=== PATIENT | male | born 1935 | race Two or more races ===

== ENCOUNTER 2017-02-19 18:10 | Emergency (ER) | payer OTHER ==
[~2017-02-19] VITALS: Ht 177.8 cm; Wt 77.1 kg
[2017-02-19] MEDS ORDERED: ONDANSETRON PF 4 MG/2 ML VIAL. IV ONE (19:30)
[2017-02-19] MEDS ORDERED: fentaNYL PF VIAL 100 MCG/2 ML VIAL IV ONE (19:30)
--- NOTE | 2017-02-19 19:43 | PHYS DOC ---
Past Medical History Past Medical History: Diabetes-Type I, Hypertension, Kidney Stone, Other Additional Past Medical Histor: Chron's, cardiac stent Past Surgical History: Appendectomy, Cholecystectomy, Other Additional Past Surgical Histo: bowel resection d/t Chron's, kidney stone removal Alcohol Use: None Drug Use: None Adult General Chief Complaint Chief Complaint: ABDOMINAL PAIN HPI HPI Patient is a 81 year old male with history of kidney stones, Crohn's disease, hypertension dyslipidemia who presents with diffuse abdominal pain starting this morning. Pain is described as moderate to severe and is constant, radiates to back and is similar to previous Crohn's episodes. Patient has not had a bowel movement since pain began. Denies rectal pain or diarrhea. No nausea or vomiting. No chest pain shortness of breath. No fevers chills. Previous partial colectomy, appendectomy and cholecystectomy. No other acute symptoms or complaints. Patient's accompanied at bedside by his son who assists with translation. Review of Systems Review of Systems Review symptoms as per history of present illness. All other review symptoms are negative. Current Medications Current Medications Current Medications Medications (Trade) Dose Ordered Sig/Jacques Start Time Stop Time Status Last Admin Dose Admin Fentanyl Citrate (Fentanyl 2ml Vial) 50 mcg 1X ONCE 02/19/17 19:30 02/19/17 19:31 DC 02/19/17 19:55 50 MCG Info (Do NOT chart on this entry -- for MONITORING) 1 each PRN DAILY PRN 02/19/17 21:00 02/19/17 23:58 DC Iohexol (Omnipaque 300 Mg/ml) 75 ml 1X ONCE 02/19/17 21:30 02/19/17 21:31 DC 02/19/17 21:32 75 ML Ondansetron HCl (Zofran) 4 mg 1X ONCE 02/19/17 19:30 02/19/17 19:31 DC 02/19/17 19:55 4 MG Allergies Allergies Allergies Coded Allergies Type Severity Reaction Last Updated Verified No Known Drug Allergies 02/19/17 No Physical Exam Physical Exam Constitutional: Well developed, well nourished, no acute distress, non-toxic appearance. [] HENT: Normocephalic, atraumatic, bilateral external ears normal, oropharynx moist, no oral exudates, nose normal. [] Eyes: PERRLA, EOMI, conjunctiva normal, no discharge. [] Neck: Normal range of motion, no tenderness, supple, no stridor. [] Cardiovascular:Heart rate regular rhythm, no murmur [] Lungs & Thorax: Bilateral breath sounds clear to auscultation [] Abdomen: Bowel sounds normal, soft, obesity compromising exam, diffuse abdominal pain, no rebound or rigidity or guarding appreciated. [] Skin: Warm, dry, no erythema, no rash. [] Back: No tenderness. [] Extremities: No tenderness, no edema. [] Neurologic: Alert and oriented, normal motor function, normal sensory function, no focal deficits noted. [] Psychologic: Affect normal, judgement normal, mood normal. [] Current Patient Data Vital Signs Vital Signs Date Time Temp Pulse Resp B/P (MAP) Pulse Ox O2 Delivery O2 Flow Rate FiO2 02/19/17 20:44 58 21 187/81 (116) 96 02/19/17 20:35 Room Air 02/19/17 18:55 97.9 97.9 Lab Values Laboratory Tests Test 02/19/17 18:50 02/19/17 19:39 Urine Collection Type Unknown Urine Color Yellow Urine Clarity Clear Urine pH 6.5 Urine Specific [place] 1.020 Urine Protein 100 mg/dL (NEG-TRACE) Urine Glucose (UA) Negative mg/dL (NEG) Urine Ketones (Stick) Negative mg/dL (NEG) Urine Blood Negative (NEG) Urine Nitrite Negative (NEG) Urine Bilirubin Negative (NEG) Urine Urobilinogen Dipstick 0.2 mg/dL (0.2 mg/dL) Urine Leukocyte Esterase Negative (NEG) Urine RBC 0 /HPF (0-2) Urine WBC 1-4 /HPF (0-4) Urine Squamous Epithelial Cells Few /LPF Urine Bacteria 0 /HPF (0-FEW) Urine Hyaline Casts Few /HPF White Blood Count 8.1 x10^3/uL (4.0-11.0) Red Blood Count 4.59 x10^6/uL (4.30-5.70) Hemoglobin 11.4 g/dL (13.0-17.5) L Hematocrit 36.0 % (39.0-53.0) L Mean Corpuscular Volume 78 fL (79-100) L Mean Corpuscular Hemoglobin 25 pg (25-35) Mean Corpuscular Hemoglobin Concent 32 g/dL (31-37) Red Cell Distribution Width 15.3 % (11.5-14.5) H Platelet Count 214 x10^3/uL (140-400) Neutrophils (%) (Auto) 44 % (31-73) Lymphocytes (%) (Auto) 44 % (24-48) Monocytes (%) (Auto) 8 % (0-9) Eosinophils (%) (Auto) 3 % (0-3) Basophils (%) (Auto) 1 % (0-3) Neutrophils # (Auto) 3.6 x10^3uL (1.8-7.7) Lymphocytes # (Auto) 3.6 x10^3/uL (1.0-4.8) Monocytes # (Auto) 0.7 x10^3/uL (0.0-1.1) Eosinophils # (Auto) 0.2 x10^3/uL (0.0-0.7) Basophils # (Auto) 0.1 x10^3/uL (0.0-0.2) Sodium Level 138 mmol/L (136-145) Potassium Level 4.7 mmol/L (3.5-5.1) Chloride Level 102 mmol/L (98-107) Carbon Dioxide Level 30 mmol/L (21-32) Anion Gap 6 (6-14) Blood Urea Nitrogen 22 mg/dL (8-26) Creatinine 1.5 mg/dL (0.7-1.3) H Estimated GFR (Cockcroft-Gault) 44.7 BUN/Creatinine Ratio 15 (6-20) Glucose Level 219 mg/dL (70-99) H Calcium Level 8.7 mg/dL (8.5-10.1) Total Bilirubin 0.7 mg/dL (0.2-1.0) Aspartate Amino Transferase (AST) 18 U/L (15-37) Alanine Aminotransferase (ALT) 20 U/L (16-63) Alkaline Phosphatase 84 U/L (46-116) C-Reactive Protein, Quantitative 0.5 mg/L (0-3.3) Total Protein 7.4 g/dL (6.4-8.2) Albumin 3.2 g/dL (3.4-5.0) L Albumin/Globulin Ratio 0.8 (1.0-1.7) L Lipase 148 U/L (73-393) Laboratory Tests 02/19/17 19:39 Laboratory Tests 02/19/17 19:39 EKG EKG [] Radiology/Procedures Radiology/Procedures [CT abdomen pelvis: No acute process per radiology reports] Course & Med Decision Making Course & Med Decision Making Pertinent Labs and Imaging studies reviewed. (See chart for details) [Abdomen soft, nonsurgical and serial exam. Lab and CT reviewed and are reassuring. We'll treat for constipation as presumptive cause of abdominal pain with recommendations this is a follow-up. Return precautions reviewed.] Dragon Disclaimer Dragon Disclaimer This electronic medical record was generated, in whole or in part, using a voice recognition dictation system. Departure Departure Impression: Primary Impression: Abdominal pain Disposition: HOME, SELF-CARE Condition: GOOD Patient Instructions: Abdominal Pain (Nonspecific) STEPHON ARAUZ DO Feb 19, 2017 19:42
[2017-02-19 19:50] LABS: BASO # 0.1 x10^3/uL (0.0-0.2); BASO % 1 % (0-3); EOS % 3 % (0-3); HEMOGLOBIN 11.4 g/dL (13.0-17.5); LYMPH # 3.6 x10^3/uL (1.0-4.8); LYMPH % 44 % (24-48); MEAN CORPUSCULAR HEMOGLOBIN 25 pg (25-35); MEAN CORPUSCULAR HGB CONC 32 g/dL (31-37); MEAN CORPUSCULAR VOLUME 78 fL (79-100); MONO % 8 % (0-9); NEUT % 44 % (31-73); PLATELET COUNT 214 x10^3/uL (140-400); RED BLOOD COUNT 4.59 x10^6/uL (4.30-5.70); RED CELL DISTRIBUTION WIDTH 15.3 % (11.5-14.5); WHITE BLOOD COUNT 8.1 x10^3/uL (4.0-11.0)
[2017-02-19 20:03] LABS: BILIRUBIN,URINE NEGATIVE (NEG); GLUCOSE,URINE NEGATIVE (NEG); NITRITE,URINE NEGATIVE (NEG); PH,URINE 6.5; PROTEIN,URINE 100 mg/dL (NEG-TRACE); UROBILINOGEN,URINE 0.2 mg/dL (0.2 mg/dL)
[2017-02-19 20:04] LABS: BACTERIA,URINE 0 /HPF (0-FEW); RBC,URINE 0 /HPF (0-2); SQUAMOUS EPITHELIAL CELL,UR FEW /LPF
[2017-02-19 20:07] LABS: CALCIUM 8.7 mg/dL (8.5-10.1); CREATININE 1.5 mg/dL (0.7-1.3); GFR 44.7; POTASSIUM 4.7 mmol/L (3.5-5.1)
[2017-02-19 20:12] LABS: ALBUMIN 3.2 g/dL (3.4-5.0); ALBUMIN/GLOBULIN RATIO 0.8 (1.0-1.7); TOTAL BILIRUBIN 0.7 mg/dL (0.2-1.0); TOTAL PROTEIN 7.4 g/dL (6.4-8.2)
[2017-02-19 20:44] VITALS: BP 187/81
[2017-02-19] MEDS ORDERED: CONTRAST GIVEN MC PRN (21:00)
[2017-02-19] MEDS ORDERED: IOHEXOL 300 MG/ML 75 ML VIAL IV ONE (21:30)
--- NOTE | 2017-02-19 22:03 | RAD ---
EXAM: Abdomen and pelvis CT with intravenous contrast. HISTORY: Pain. TECHNIQUE: Computed tomographic images of the abdomen and pelvis were obtained following the administration of 60 cc Omnipaque 300 intravenous contrast. Multiplanar reformatting was performed. *One or more of the following individualized dose reduction techniques were utilized for this examination: 1. Automated exposure control. 2. Adjustment of the mA and/or kV according to patient size. 3. Use of iterative reconstruction technique. COMPARISON: None. FINDINGS: Evaluation of the lower thorax demonstrates bilateral posterior dependent and basilar atelectasis. There is an 8 mm nodule within the medial left lung base. The heart is upper normal in size. There is coronary artery atherosclerosis. There is biliary ductal dilatation likely due to reservoir effect status post cholecystectomy. There is a punctate calcification in the pancreatic head which may be vascular or due to the sequela of chronic pancreatitis. The spleen and adrenal glands are unremarkable. There is bilateral renal cortical scarring and atrophy. There are 1.2 cm and 1.0 cm cystic lesions within the superior bilateral kidneys. There is no obstructive uropathy. There is deformation of the bladder base due to a mildly enlarged prostate. There is no evidence of bowel obstruction. There is moderate distal colonic stool. There is no pathologically enlarged lymph node. There are degenerative changes involving the spine. There is a interspinous decompression device at L4-L5. IMPRESSION: 1. Moderate distal colonic stool. There is no evidence of colitis or obstruction. 2. Biliary ductal dilatation, likely due to reservoir effect status post cholecystectomy. 3. Renal cortical scarring and atrophy. There are small cystic-appearing lesions within the upper poles of both kidneys. Renal sonography can be performed to exclude a complex cyst or solid lesion. 4. 8 mm pulmonary nodular opacity at the left lung base. This is likely due to subsegmental atelectasis. However, follow-up can be performed according to Fleischner Society criteria if clinically indicated. Fleischner Society recommendations (Radiology 2005; 237; 395-400): In a low risk patient: <4mm - No follow up required. >4-6mm- 12 month follow up, if unchanged, no further follow up. >6-8mm- 6-12 month follow up, then at 18-24 months if no change. >8mm- 3, 9, 24 month follow up or consideration of PET/CT. In a high risk patient: <4mm - 12 month follow up, if unchanged then no further follow up. >4-6mm- 6-12 month follow up, then at 18-24 months if no change. >6-8mm- 3-6 month follow up, then at 9-12 months and 24 months if no change >8mm- Same as for low risk patient. Electronically signed by: Aretha Quezada MD (02/19/2017 9:59 PM) [facility]
--- NOTE | 2017-02-20 11:24 | EKG ---
[facility] [address] [place] [address] Test Date: 2017-02-19 Test Time: 18:54:15 Pat Name: JAX FLORES Department: Room: Gender: M Flight Hostess: : 1935 Requested By: STEPHON ARAUZ Order Number: [id number] Reading MD: Bernardo Tejada Measurements Intervals [place] Rate: 61 P: 34 ME: 356 QRS: -23 QRSD: 86 T: 21 QT: 434 QTc: 443 Interpretive Statements SINUS RHYTHM PROLONGED ME INTERVAL Electronically Signed On 02-23-2017 9:54:24 CDT by Bernardo Tejada
== END 2017-02-19 23:39 | disposition home or self-care (01) ==
LOC: ER 19:58
DX: R10.84 Generalized abdominal pain (principal); E10.9 Type 1 diabetes mellitus without complications; I10 Essential (primary) hypertension; K50.90 Crohn's disease, unspecified, without complications; E78.5 Hyperlipidemia, unspecified; Z87.442 Personal history of urinary calculi; Z90.49 Acquired absence of other specified parts of digestive tract; Z95.5 Presence of coronary angioplasty implant and graft
CPT/HCPCS: 36415; 74177; 80053; 81001; 83690; 85025; 86140; 93005; 96374; 96375; 99285; J2405; J3010; Q9967

== ENCOUNTER → 2017-03-09 | Day surgery (SDC) | payer OTHER ==
[~2017-03-09] MED LIST: ASPI-482 PO; BALS750C PO; CARV6.252 PO; DICY10CA3 PO; DIPH1TAB PO; ESOM20CA PO; GLYCOPYRROLATE 1 MG/5 ML VIAL. ONE; HUM100VI5 SQ; IV RINGERS,LACTATED 1000ML 1,000 ML IV ONE; LIDOCAINE 2% PF Vial for OR 5 ML VIAL. ONE; LIPITOR80 MG PO; POTA20TA4 PO; PROPOFOL 20 ML IV ONE; TRAM50TA PO; ePHEDrine PF IN SALINE 50 MG/5 ML DISP.SYRIN IV ONE
[2017-03-09 17:43] VITALS: BP 146/70
--- NOTE | 2017-03-11 11:51 | PATHOLOGY ---
PATHOLOGY REPORT * * * * * * * * FINAL DIAGNOSIS: Colonic mucosa, random colon biopsy: - No significant pathologic abnormalities. COMMENT: Sections of the random colon biopsy reveal multiple segments of colonic mucosa containing several mucosal-associated lymphoid aggregates. There is no evidence of a chronic destructive colitis, lymphocytic colitis, or collagenous colitis. (JPM:mgr; 03/11/2017) REPORT ELECTRONICALLY SIGNED BY: Darinel Dupont M.D. DATE/TIME: 03/11/2017 11:50 * * * * * * * * GROSS PATHOLOGY: Received in formalin labeled "Jax Flores, random colon biopsies, r;/o Crohn's," are multiple segments of kumar soft tissue measuring from 0.1 up to 0.3 cm in maximum dimension. The specimen is submitted entirely in cassette A1. (JPM; 03/10/17) INITIAL CPT CODE(S): A; 73924 Professional services performed [place] [facility] [place] [address] Technical services performed by [facility] at [address] [place] [address]. SPECIMEN(S) RECEIVED: A.Random colon biopsy CLINICAL HISTORY: Screening PATIENT: JAX FLORES /AGE: 2 1935 (Age: 81) PATIENT #: [id number] ALT CASE #: SPECIMEN COLLECTION DATE: 03/09/2017 SPECIMEN RECEIVED DATE: 03/10/2017 [facility] - [address] [place] [address] - PHONE: [phone] * * * END OF REPORT * * *
== END | disposition home or self-care (01) ==
LOC: ENDOS 15:25
PROVIDERS: ATTEND Internal Medicine Gastroenterology
DX: K64.0 First degree hemorrhoids (principal); K50.10 Crohn's disease of large intestine without complications; K63.89 Other specified diseases of intestine; E78.00 Pure hypercholesterolemia, unspecified; I10 Essential (primary) hypertension; E11.9 Type 2 diabetes mellitus without complications; Z90.49 Acquired absence of other specified parts of digestive tract; Z86.39 Personal history of other endocrine, nutritional and metabolic disease
CPT/HCPCS: 45380; 88305; J2704; J3490; J2001

== ENCOUNTER → 2017-03-30 | Outpatient (CLI) | payer OTHER ==
[2017-03-09 17:43] VITALS: BP 146/70
[~2017-03-30] MED LIST changes: -GLYCOPYRROLATE 1 MG/5 ML VIAL. ONE; -IV RINGERS,LACTATED 1000ML 1,000 ML IV ONE; -LIDOCAINE 2% PF Vial for OR 5 ML VIAL. ONE; -PROPOFOL 20 ML IV ONE; -ePHEDrine PF IN SALINE 50 MG/5 ML DISP.SYRIN IV ONE
[2017-03-30] MEDS: BARIUM SULFATE 60% 355 ML SUSP PO ONE (09:24)
--- NOTE | 2017-03-30 11:11 | RAD ---
Indication abdominal pain for a month. In anticipation of a small bowel examination a preliminary film of the abdomen was obtained. The preliminary film appears unremarkable. Contrast was administered orally and followed through to the large bowel. 5 fluoroscopic spot images were obtained. Fluoroscopy time associated with the imaging was 1.7 minutes. The jejunal loops appear normal. The ileal loops appear normal. No strictured segment is seen. Changes of a right colectomy are noted. IMPRESSION: No acute or significant finding seen in the small bowel
== END | disposition home or self-care (01) ==
LOC: RAD 08:57
PROVIDERS: ATTEND Internal Medicine Gastroenterology
DX: K50.90 Crohn's disease, unspecified, without complications (principal)
CPT/HCPCS: 74250

== ENCOUNTER → 2017-08-13 | Outpatient (CLI) | payer OTHER | END | disposition home or self-care (01) | LOC: US 15:37 | DX: N20.0 Calculus of kidney (principal); E04.1 Nontoxic single thyroid nodule; N28.89 Other specified disorders of kidney and ureter | CPT/HCPCS: 76770 ==

== ENCOUNTER 2017-08-15 12:45 | Emergency (ER) | payer OTHER ==
[2017-08-15 13:57] LABS: ADD MAN DIFF? NO
[2017-08-15 14:06] LABS: BASO # 0.1 x10^3/uL (0.0-0.2); BASO % 1 % (0-3); EOS # 0.2 x10^3/uL (0.0-0.7); EOS % 2 % (0-3); HEMATOCRIT 37.9 % (39.0-53.0); HEMOGLOBIN 12.1 g/dL (13.0-17.5); LYMPH # 2.9 x10^3/uL (1.0-4.8); LYMPH % 34 % (24-48); MEAN CORPUSCULAR HEMOGLOBIN 26 pg (25-35); MEAN CORPUSCULAR HGB CONC 32 g/dL (31-37); MEAN CORPUSCULAR VOLUME 80 fL (79-100); MONO # 0.6 x10^3/uL (0.0-1.1); MONO % 7 % (0-9); NEUT # 4.8 x10^3uL (1.8-7.7); NEUT % 56 % (31-73); PLATELET COUNT 169 x10^3/uL (140-400); RED BLOOD COUNT 4.73 x10^6/uL (4.30-5.70); RED CELL DISTRIBUTION WIDTH 15.1 % (11.5-14.5); WHITE BLOOD COUNT 8.6 x10^3/uL (4.0-11.0)
[2017-08-15 14:10] LABS: ANION GAP 12 (6-14); BLOOD UREA NITROGEN 34 mg/dL (8-26); BUN/CREATININE RATIO 20 (6-20); CALCIUM 8.9 mg/dL (8.5-10.1); CARBON DIOXIDE 22 mmol/L (21-32); CHLORIDE 107 mmol/L (98-107); CREATININE 1.7 mg/dL (0.7-1.3); GFR 38.6; GLUCOSE 162 mg/dL (70-99); POTASSIUM 4.3 mmol/L (3.5-5.1); SODIUM 141 mmol/L (136-145)
[2017-08-15 14:16] LABS: ALBUMIN 2.9 g/dL (3.4-5.0); ALBUMIN/GLOBULIN RATIO 0.8 (1.0-1.7); ALK PHOS 79 U/L (46-116); ALT (SGPT) 16 U/L (16-63); AST (SGOT) 13 U/L (15-37); LIPASE 150 U/L (73-393); TOTAL BILIRUBIN 0.5 mg/dL (0.2-1.0); TOTAL PROTEIN 6.6 g/dL (6.4-8.2)
[2017-08-15 14:19] LABS: TROPONINI < 0.017 ng/mL (0.000-0.055)
[2017-08-15] MEDS: ONDANSETRON PF 4 MG/2 ML VIAL. IV (16:15)
[2017-08-15] MEDS: MORPHINE SULFATE 2 MG/ML DISP.SYRIN. IV (16:15)
[2017-08-15] MEDS: IV NORMAL SALINE 1000ML BAG 1,000 ML IV (16:30)
== END 2017-08-15 16:50 | disposition left against medical advice (07) ==
LOC: ER 12:45
DX: E86.0 Dehydration (principal); K50.90 Crohn's disease, unspecified, without complications; K21.9 Gastro-esophageal reflux disease without esophagitis; I10 Essential (primary) hypertension; E10.9 Type 1 diabetes mellitus without complications; E87.6 Hypokalemia; Z95.5 Presence of coronary angioplasty implant and graft; Z90.49 Acquired absence of other specified parts of digestive tract; Z87.442 Personal history of urinary calculi
CPT/HCPCS: 36415; 74176; 80053; 83690; 84484; 85025; 86850; 86900; 86901; 93005; 96360; 99285-25; J7030

== ENCOUNTER → 2018-06-22 | Outpatient (CLI) | payer OTHER ==
[2017-12-04 11:00] VITALS: BP 149/115
[~2018-06-22] MED LIST changes: +ATOR40TA59 PO; +BACI1TAB3 PO; +CARV12.511 PO; +CARV6.2511 PO; -CARV6.252 PO; +CEFD300C PO; +DEXT1CAP PO; +FERR325T14 PO; +GLYB5TAB3 PO; +MAGN400T3 PO; +METF500T9 PO; +ONDA4TAB10 SL; +PANT20TA2 PO; +SIME125C PO
[2018-06-22 13:41] LABS: BASO # 0.1 x10^3/uL (0.0-0.2); BASO % 1 % (0-3); EOS # 0.2 x10^3/uL (0.0-0.7); EOS % 2 % (0-3); HEMATOCRIT 38.3 % (39.0-53.0); HEMOGLOBIN 12.7 g/dL (13.0-17.5); LYMPH # 3.6 x10^3/uL (1.0-4.8); LYMPH % 38 % (24-48); MEAN CORPUSCULAR HEMOGLOBIN 28 pg (25-35); MEAN CORPUSCULAR HGB CONC 33 g/dL (31-37); MEAN CORPUSCULAR VOLUME 83 fL (79-100); MONO # 0.7 x10^3/uL (0.0-1.1); MONO % 8 % (0-9); NEUT # 4.8 x10^3uL (1.8-7.7); NEUT % 51 % (31-73); PLATELET COUNT 228 x10^3/uL (140-400); RED BLOOD COUNT 4.61 x10^6/uL (4.30-5.70); RED CELL DISTRIBUTION WIDTH 15.8 % (11.5-14.5); WHITE BLOOD COUNT 9.4 x10^3/uL (4.0-11.0)
[2018-06-22 13:51] LABS: BILIRUBIN,URINE SMALL (NEG); CLARITY,URINE CLEAR; COLOR,URINE AMBER; NITRITE,URINE NEGATIVE (NEG); PH,URINE 5.5; PROTEIN,URINE >=300 mg/dL (NEG-TRACE); UROBILINOGEN,URINE 0.2 mg/dL (0.2 mg/dL)
[2018-06-22 14:11] LABS: BACTERIA,URINE 0 /HPF (0-FEW); HYALINE CASTS, URINE FEW /HPF; RBC,URINE OCC /HPF (0-2); WBC,URINE OCC /HPF (0-4)
[2018-06-22 14:13] LABS: CALCIUM 8.7 mg/dL (8.5-10.1); CREATININE 1.7 mg/dL (0.7-1.3); GFR 38.6; PHOSPHORUS 3.2 mg/dL (2.6-4.7); POTASSIUM 4.5 mmol/L (3.5-5.1)
[2018-06-23 02:19] LABS: CREAT RD UR 186.2 mg/dL (Not Estab.); MICRO CREAT RATIO 640.5 mg/g creat (0.0-30.0); MICROALB RD UR 1192.7 ug/mL (Not Estab.)
== END | disposition home or self-care (01) ==
LOC: LAB 13:05
PROVIDERS: ATTEND Internal Medicine Nephrology
DX: N18.3 Chronic kidney disease, stage 3 (moderate) (principal); E11.22 Type 2 diabetes mellitus with diabetic chronic kidney disease; I12.9 Hypertensive chronic kidney disease with stage 1 through stage 4 chronic kidney disease, or unspecified chronic kidney disease
CPT/HCPCS: 36415; 80069; 81001; 82043; 82570; 85025; 87086

== ENCOUNTER → 2019-03-01 | Outpatient (CLI) | payer OTHER ==
[2017-12-04 11:00] VITALS: BP 149/115
[~2019-03-01] MED LIST changes: +METF500T11 PO; -METF500T9 PO
--- NOTE | 2019-03-01 13:32 | KCIC ---
EXAM: AP, oblique and lateral views left ankle AP, lateral views left tibia/fibula AP, oblique and lateral views of the left knee DATE: 03/01/2019 12:00 AM INDICATION: Fall, twisting injury, swelling, left leg pain COMPARISON: No Prior FINDINGS: Left knee: Mild cortical offset and trace periosteal reaction about the fibular neck is seen consistent with nondisplaced fracture. Atherosclerotic vascular calcifications are seen. No joint effusion. Decreased bone mineral density. Left tibia/fibula: Fibular head/neck fracture as above. No distal tibial/fibular fracture is identified. Mild diffuse soft tissue swelling about the left lower leg. Gastric calcifications are again seen. Decreased bone mineral density. Left ankle: No evidence of acute fracture or dislocation. Decreased bone mineral density. Ankle mortise is congruent. Talar dome is intact. Calcaneal enthesopathy IMPRESSION: 1. Nondisplaced left fibular neck fracture with mild periosteal reaction, likely subacute. 2. Within the constraints of osteopenia, no distal tibial or fibular fracture. No significant soft tissue swelling. 3. Calcaneal enthesopathy. Electronically signed by: Cole Vieyra MD (03/01/2019 1:30 PM) [facility]-[id number]
== END | disposition home or self-care (01) ==
LOC: KCIC 12:22
PROVIDERS: ATTEND Physician Assistant Surgical
DX: S82.492A Other fracture of shaft of left fibula, initial encounter for closed fracture (principal); M85.862 Other specified disorders of bone density and structure, left lower leg; M77.32 Calcaneal spur, left foot; I70.202 Unspecified atherosclerosis of native arteries of extremities, left leg; W19.XXXA Unspecified fall, initial encounter; Y93.89 Activity, other specified; Y92.89 Other specified places as the place of occurrence of the external cause; Y99.8 Other external cause status
CPT/HCPCS: 73562; 73590; 73610

== ENCOUNTER → 2020-01-11 | Outpatient (CLI) | payer OTHER ==
[2017-12-04 11:00] VITALS: BP 149/115
[~2020-01-11] MED LIST changes: -MAGN400T3 PO; +MAGN400T5 PO; +METF-658 PO; -METF500T11 PO
--- NOTE | 2020-01-11 09:57 | RAD ---
EXAM: Lumbar spine MRI without contrast. HISTORY: Lower back pain and lower extremity radiculopathy. TECHNIQUE: Multiplanar, multisequence magnetic resonance imaging of the lumbar spine was performed without contrast. COMPARISON: None. FINDINGS: There is no significant scoliosis. There is minimal retrolisthesis of L5 on S1. There is degenerative endplate remodeling and disc desiccation at all levels. There is diffusely heterogeneous marrow signal intensity with superimposed osseous hemangiomas. No suspicious osseous lesion is seen. There is no fracture. There is chronic mild anterior wedging of T12 and minimal anterior decreased vertebral body height at L1. The conus terminates at T12-L1. There is bilateral renal atrophy. There is a complex left renal cyst containing suspected layering calcification or blood products measuring 1.9 cm. There is metallic artifact due to and interspinous decompression device at L4-L5. At L1-L2, there is anterior predominant endplate osteophytosis. There is mild bilateral facet arthropathy. There is mild bilateral foraminal stenosis. At L2-L3, there is a small left foraminal disc protrusion superimposed on a disc bulge and endplate remodeling. There is mild bilateral facet arthropathy. There is no stenosis. At L3-L4, there is a disc bulge and anterior predominant endplate osteophytosis. There is mild bilateral facet arthropathy. There is minimal central canal stenosis. At L4-L5, there is a shallow broad-based left paracentral to lateral recess disc protrusion and annular tear superimposed on a disc bulge and endplate remodeling. There is mild bilateral facet arthropathy. There is mild bilateral foraminal stenosis. There is mild central canal stenosis. At L5-S1, there is a shallow posterior central disc protrusion and annular tear with minimal inferior extrusion superimposed on a disc bulge and endplate osteophytosis. There is moderate right and mild left foraminal stenosis. IMPRESSION: 1. Multilevel degenerative change involving the lumbar spine, described in detail above. This is associated with mild bilateral foraminal stenosis at L1-L2, minimal central canal stenosis at L3-L4, mild bilateral foraminal and central canal stenosis at L4-L5 and moderate right and mild left foraminal stenosis at L5-S1. 2. Interspinous decompression device at L4-L5. 3. Bilateral renal atrophy and 1.9 cm complex left renal cyst likely containing layering debris. There are few additional small simple and suspected hemorrhagic renal cysts which are better characterized on the abdomen MRI performed on the same date. Electronically signed by: Aretha Quezada MD (01/11/2020 9:54 AM) [id number]
--- NOTE | 2020-01-11 10:52 | RAD ---
EXAM: MRI ABDOMEN WITHOUT CONTRAST. HISTORY: Common duct dilatation, low back pain. TECHNIQUE: MRI of the abdomen was performed without intravenous contrast. Three-dimensional reconstructions of the biliary tree were also performed. COMPARISON: None. FINDINGS: Liver: Hepatic parenchymal signal loss on opposed phase images indicates mild diffuse hepatic steatosis. There are no suspicious hepatic lesions. Biliary tree: The gallbladder is surgically absent. The common duct is moderately dilated at 1.4 cm. There is moderate intrahepatic biliary dilatation. No cause for distal obstruction or choledocholithiasis is identified. The pancreatic parenchyma is diffusely moderately atrophic without focal lesions. The main pancreatic duct is not dilated. There are scattered mildly dilated pancreatic ductal side branches, several which include tiny cystic lesions measuring <5 mm. Other findings: The renal parenchyma is moderately atrophic bilaterally. There are multiple cysts bilaterally. Some are T2 hypointense and T1 hyperintense, most likely reflecting proteinaceous/hemorrhagic contents. The adrenal glands and spleen are unremarkable. IMPRESSION: 1. Moderate intra and extrahepatic biliary dilatation status post cholecystectomy, to the level of the ampulla. No cause for distal obstruction is appreciable. Correlate for cholestasis to assess significance. ERCP could exclude ampullary stenosis if there is persistent concern. 2. Scattered pancreatic ductal side branch dilatation may reflect chronic pancreatitis. Tiny cystic lesions may reflect a dilated side branch ducts or tiny intraductal papillary mucinous neoplasms. 3. Multiple bilateral renal lesions most likely reflect complicated cysts. Ultrasound follow-up is suggested to exclude solid lesions. 4. Mild diffuse hepatic steatosis. Electronically signed by: Glendy Walker MD (01/11/2020 10:49 AM) [id number]
== END | disposition home or self-care (01) ==
LOC: MRI 09:39
PROVIDERS: ATTEND Family Medicine
DX: M47.816 Spondylosis without myelopathy or radiculopathy, lumbar region (principal); M54.40 Lumbago with sciatica, unspecified side; M43.17 Spondylolisthesis, lumbosacral region; M25.78 Osteophyte, vertebrae; M48.07 Spinal stenosis, lumbosacral region; K83.8 Other specified diseases of biliary tract; N26.1 Atrophy of kidney (terminal); K76.0 Fatty (change of) liver, not elsewhere classified; Z90.49 Acquired absence of other specified parts of digestive tract; N28.89 Other specified disorders of kidney and ureter
CPT/HCPCS: 72148; 74181

== ENCOUNTER → 2020-01-30 | Outpatient (CLI) | payer OTHER ==
[2017-12-04 11:00] VITALS: BP 149/115
--- NOTE | 2020-01-30 14:16 | PDOC2 ---
INITIAL PAIN CONSULT DATE OF SERVICE: DOS: DATE: 01/30/20 TIME: 13:56 CHIEF COMPLAINT: Chief Complaint: Low back and bilateral lower extremity pain HISTORY OF PRESENT ILLNESS: This is an 84-year-old male presents history of pain low back bilateral lower extremities for about 6 years. Patient son is with him and serves as prevocational/rehabilitation counselor for [employer]. Patient reports the pain is constant in the low back the bilateral lower extremities worse with walking and standing better with sitting or laying down patient reports it wakes him from sleep least 4-5 times at night patient reports he does not affect his bowel bladder control does affect his body to walk he does have a cane with him he is using his right hand walk with today. Patient has had epidural injections in 2014 in [place] also physical therapy in 2018 at and counseling and is doing exercise currently and walks daily about half a mile but is becoming much more difficult for him to do this lately because of the pain in bilateral lower extremities. Patient reports the pain is in both legs across the low back described as constant aching radiating into the legs sharp and dull alternating in the back as well as cramping and burning at times in the low back itself. 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 Patient been taking Tylenol 3 as well as [id number] anti-inflammatories Advil and also Tylenol with only minimal decrease in pain. Patient reports that physical therapies been doing and the exercises been doing since with the physical therapy are helpful but only by about 20%. Patient ports no loss of motor function but significant fatigability with walking and standing. Patient did have an MRI scan lumbar spine showing multilevel disc degenerative disc disease with central canal stenosis L3-4 mild bilateral foraminal and central canal stenosis at L4-5 and moderate right and mild left foraminal stenosis at L5-S1. PAST MEDICAL HISTORY: PMH: Diabetes insulin-dependent, hearing loss, hypertension, Crohn's disease PREVIOUS SURGERIES: Past Surgical Hx: Cholecystectomy 1999, L4-5 interspinous decompression device placed CURRENT MEDICATIONS: Current Meds: Active Scripts Medications Dose Route/Sig Max Daily Dose Days Date Category Glyburide 5 Mg Tablet 1 Tab PO BID 12/04/17 Rx Zofran Odt (Ondansetron) 4 Mg Tab.rapdis 1 Tab SL Q8HRS 08/15/17 Rx Atorvastatin Calcium 40 Mg Tablet 40 Mg PO HS 08/15/17 Reported Cefdinir 300 Mg Capsule 1 Cap PO BID 08/15/17 Reported Nuedexta 20-10 Mg Capsule (Dextromethorphan Hbr/Quinidine) 1 Each Capsule 2 Each PO DAILY 08/15/17 Reported Nexium Capsule (Esomeprazole Magnesium) 20 Mg Capsule.dr 20 Mg PO DAILYAC 08/15/17 Reported Gas-X (Simethicone) 125 Mg Capsule 125 Mg PO 08/15/17 Reported Ferrous Sulfate 325 Mg Tablet 1 Tab PO DAILY 08/15/17 Reported Magnesium Oxide 400 Mg Tablet 250 Mg PO DAILY 08/15/17 Reported Probiotic (Bacillus Coagulans) 1 Each Tab.chew 1 Each PO DAILY 08/15/17 Reported Klor-Con M20 (Potassium Chloride) 20 Meq Tab.er.prt 1 Tab PO DAILY 03/09/17 Reported Carvedilol 6.25 Mg Tablet 1 Tab PO BID 03/09/17 Reported Aspir 81 (Aspirin) 81 Mg Tablet.dr 1 Tab PO DAILY 03/09/17 Reported Tramadol Hcl 50 Mg Tablet 50 Mg PO DAILY PRN 03/09/17 Reported Lomotil Tablet (Diphenoxylate Hcl/Atropine) 1 Each Tablet 1 Tab PO TID 03/09/17 Reported Balsalazide Disodium 750 Mg Capsule 750 Mg PO TID 03/09/17 Reported Novolin 70-30 100 Unit/Ml Vial (Hum Insulin Nph/Reg Insulin Hm) 100 Unit/1 Ml Vial 1 Unit SQ 03/09/17 Reported Dicyclomine Hcl 10 Mg Capsule 10 Mg PO QID 03/09/17 Reported ALLERGIES; Allergies: Coded Allergies: No Known Drug Allergies (Unverified , 03/09/17) FAMILY HISTORY: Family Hx: No significant family history reported SOCIAL HISTORY: Social Hx: Patient does not drink alcohol does not smoke so is the legal list recreational drugs is a lives locally with his son and is currently retired. REVIEW OF SYSTEMS: ROS: Patient review of system is positive for those items mentioned in history of present illness, all systems are reviewed otherwise negative is complete full well-documented on patient's chart. PHYSICAL EXAM: VS: Blood pressure is 128/62 pulse 74 respirations 18 temperature 97.8 F height is 5 feet 9 inches weight is 1 7 6 pounds PE: PHYSICAL EXAMINATION: GENERAL: The patient is awake, alert, oriented, appropriate, very pleasant demeanor HEENT: Shows normocephalic, atraumatic. Extraocular movements are intact and symmetrical. Oral cavity: Mucous membranes moist and pink. Dentition is intact. NECK: Shows anterior throat supple without palpable lymphadenopathy noted. Swallow reflex symmetrical. CHEST: Shows normal on inspection. Breath sounds are clear bilaterally, no rales rhonchi or wheezes auscultated. HEART: Shows S1, S2 clear. No murmurs auscultated. ABDOMEN: Soft, nontender, nondistended. No palpable organomegaly is noted. No rebound or guarding demonstrated. BACK: Shows spine grossly in the midline. Normal-appearing cervical lordotic curvature. There is slightly increased thoracic kyphosis, some minor flattening of the lumbar lordotic curvature. Lumbar paraspinous muscles show symmetrical on inspection, on palpation shows some moderate tenderness diffusely throughout the upper, middle and lower distribution of the paraspinous muscles bilaterally and also into the lower thoracic paraspinous musculature, firm and tender, but without specific trigger points, without radiation of pain. The patient has good rotational motion of the lumbar spine, both laterally as well as extension and flexion without significant difficulty. No tenderness over the spinous processes, sacrum or sacroiliac regions. EXTREMITIES: Lower extremities show deep tendon reflexes 1+ in the patellar and tendo calcaneus tendons. Motor exam is [] on a scale of 5 with right dorsiflexion, extension, quadriceps and hamstring flexion and 4/5 on the left. Peripheral pulses are 1+ posterior tibial. No peripheral edema is noted bilaterally. Lower extremities are warm and dry to touch, equal in color and appearance. Straight leg raise noted to be negative, left side is negative. Gaenslen's and Benny's maneuvers are negative as well. The patient is able to stand but needs help getting up from the chair uses a cane in the arm of the chair to stand with ambulation favoring the right lower extremity greater than the left and using a cane in his right hand.. SKIN: Shows warm and dry, good turgor. No edema. No sores, rashes or bruising throughout. 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 MRI scan lumbar spine as noted, hypertension, diabetes, hearing loss, Crohn's disease Plan: Options were discussed with the patient patient's son who accompanied his visit today including conservative medical management is continued physical t herapy is interventional techniques and he like to pursue interventional techniques as he is doing physical therapy and has had some decrease in pain with this is also doing exercise and walking daily taking anti-inflammatories as well as Tylenol 3 with only minimal decrease in pain. Patient would like to pursue dimensional techniques we discussed a lumbar epidural steroid injection using descriptions as well as anatomical models to describe the procedure patient will wait for preauthorization with his insurance provider will plan on a translaminar L4-5 lumbar epidural steroid injection at that time for his clinical L4-5 radiculopathy in the bilateral lower extremities. In the meantime patient will continue with walking daily as tolerated stretching strength exercises as well as anti-inflammatory medication... SHIKHA GIRALDO MD Jan 30, 2020 14:16
== END | disposition home or self-care (01) ==
LOC: PNCL 12:51
PROVIDERS: ATTEND Anesthesiology
DX: M48.061 Spinal stenosis, lumbar region without neurogenic claudication (principal); M51.36 Other intervertebral disc degeneration, lumbar region; E11.9 Type 2 diabetes mellitus without complications; I10 Essential (primary) hypertension; Z98.890 Other specified postprocedural states; Z79.899 Other long term (current) drug therapy; Z79.82 Long term (current) use of aspirin
CPT/HCPCS: G0463

== ENCOUNTER → 2020-09-18 | Outpatient (CLI) | payer OTHER ==
[2017-12-04 11:00] VITALS: BP 149/115
[~2020-09-18] MED LIST changes: +IOHEXOL 180 MG/ML 10 ML VIAL. ONE; +methylPREDNISolone ACETATE 40 MG/ML VIAL. ONE; +methylPREDNISolone ACETATE 80 MG/ML VIAL. ONE
--- NOTE | 2020-09-18 12:40 | PDOC4 ---
PROCEDURE Procedure Patient was consented for lumbar epidural steroid injection. Risks were dis cussed including but not limited to: Bleeding, infection, possibility of epidural hematoma and subsequent neurological compromise, dural puncture, headaches, spinal cord and/or nerve damage, side effects of steroid medication, and poor results regarding pain control. Patient understands and wished to proceed. Procedure is lumbar epidural steroid injection under local anesthetic using sterile prep and drape at the L4-5 level using C-arm fluoroscopic guidance in both AP and lateral views medications injected is 120 mg Depo-Medrol + ten mL preservative-free normal saline and 2 mL contrast- condition at discharge is stable patient tolerated procedure well had no complications. SHIKHA GIRALDO MD Sep 18, 2020 12:40
--- NOTE | 2020-09-18 12:40 | PDOC ---
Progress Note - Pain Clinic Date of Service: DOS: DATE: 09/18/20 TIME: 12:37 Diagnosis: Dx: Lumbar radiculopathy with lumbar degenerative disease and lumbar spinal stenosis History or Present Illness: HPI: 85-year-old male returns for follow-up last seen January 30, 2020. Patient awaiting preauthorization and is obtained that now would like to proceed with lumbar epidural steroid injection as we discussed with his visit last summer. Patient reports still significant pain in the low back bilateral lower extremities posterior gluteus posterior thighs posterior calves patient reports right equal to left essentially patient's son is with him and serves as seismic interpreter. Patient reports the pain is a ten on scale ten is worse over the past week eight on average six its least is a seven today patient reports is tight and burning constant the low back and legs as noted worse with walking standing changing positions better with sitting or laying down wakes him from sleep about every 2 hours. Patient reports no motor or sensory deficits no bowel or bladder incontinence. Physical Exam: VS: Blood pressure is 122/70 pulse seventy respirations eighteen temperature 97.9 F height 5 feet 9 inches weight 166 pounds PE: PHYSICAL EXAMINATION: GENERAL: The patient is awake, alert, oriented, appropriate, very pleasant demeanor HEENT: Shows normocephalic, atraumatic. Extraocular movements are intact and symmetrical. Oral cavity: Mucous membranes moist and pink. NECK: Shows anterior throat supple without palpable lymphadenopathy noted. Swallow reflex symmetrical. CHEST: Shows normal on inspection. Breath sounds are clear bilaterally, no rales rhonchi wheezes auscultated. HEART: Shows S1, S2 clear. No murmurs auscultated. ABDOMEN: Soft, nontender, nondistended, obese. No palpable organomegaly is noted. No rebound or guarding demonstrated. BACK: Shows spine grossly in the midline. Normal-appearing cervical lordotic curvature. There is slightly increased thoracic kyphosis, some minor flattening of the lumbar lordotic curvature. Lumbar paraspinous muscles show symmetrical on inspection, on palpation shows some moderate tenderness diffusely throughout the upper, middle and lower distribution of the paraspinous muscles bilaterally and also into the lower thoracic paraspinous musculature, firm and tender, but without specific trigger points, without radiation of pain. The patient has good rotational motion of the lumbar spine, both laterally as well as extension and flexion without significant difficulty. No tenderness over the spinous processes, sacrum or sacroiliac regions. EXTREMITIES: Lower extremities show deep tendon reflexes 1+ in the patellar and tendo calcaneus tendons. Motor exam is four on a scale of 5 with right d orsiflexion, extension, quadriceps and hamstring flexion and four/5 on the left. Peripheral pulses are 1+ posterior tibial. No peripheral edema is noted bilaterally. Lower extremities are warm and dry to touch, equal in color and appearance. SKIN: Shows warm and dry, good turgor. No edema. No sores, rashes or bruising throughout. Procedure: Procedure: Options were discussed with the patient patient's son who, accompanied him at his visit today. We will proceed with a lumbar epidural steroid injection stable fluoroscopic guidance. Risks were discussed including but not limited to: Bleeding, infection, possibility of epidural hematoma and subsequent neurological compromise, dural puncture, headaches, spinal cord and/or nerve damage, side effects of steroid medication, and poor results regarding pain control. Patient understands and wished to proceed. Patient will return to the clinic in approximate 2 weeks for follow-up, was counseled as return appointment, activity level, and side effects to be aware of. Medication Injected: Med Injected: Procedure is lumbar epidural steroid injection under local anesthetic using sterile prep and drape at the L5-S1 level using C-arm fluoroscopic guidance in both AP and lateral views medications injected is 120 mg Depo-Medrol + ten mL preservative-free normal saline and 2 mL contrast- condition at discharge is stable patient tolerated procedure well had no complications. Condition at Discharge: Condition at Discharge: Condition at discharge stable, patient already procedure well and had no complic ations. SHIKHA GIRALDO MD Sep 18, 2020 12:40
== END | disposition home or self-care (01) ==
LOC: PNCL 11:31
PROVIDERS: ATTEND Anesthesiology
DX: M51.16 Intervertebral disc disorders with radiculopathy, lumbar region (principal); M48.061 Spinal stenosis, lumbar region without neurogenic claudication; E78.00 Pure hypercholesterolemia, unspecified; I10 Essential (primary) hypertension; K21.9 Gastro-esophageal reflux disease without esophagitis; E11.9 Type 2 diabetes mellitus without complications; Z90.49 Acquired absence of other specified parts of digestive tract; Z98.890 Other specified postprocedural states; Z79.899 Other long term (current) drug therapy; Z79.82 Long term (current) use of aspirin; Z79.84 Long term (current) use of oral hypoglycemic drugs
CPT/HCPCS: 62323; J1030; J1040; Q9965; 77002

== ENCOUNTER → 2021-01-14 | Outpatient (CLI) | payer OTHER ==
[2017-12-04 11:00] VITALS: BP 149/115
[~2021-01-14] MED LIST changes: -IOHEXOL 180 MG/ML 10 ML VIAL. ONE; -methylPREDNISolone ACETATE 40 MG/ML VIAL. ONE; -methylPREDNISolone ACETATE 80 MG/ML VIAL. ONE
--- NOTE | 2021-01-14 09:53 | PDOC ---
Progress Note - Pain Clinic Date of Service: DOS: DATE: 01/14/21 TIME: 09:49 Diagnosis: Dx: Lumbar radiculopathy with lumbar degenerative disc disease and lumbar spinal stenosis History or Present Illness: HPI: 85-year-old male returns for follow-up status post lumbar epidural steroid injection September 18, 2020. Patient reports about 75% improvement for the first week or so then about 50% improvement and now the pain is returned to baseline over the past 3 to 4weeks has been hurting for about a month in the low back and right lower extremity posterior gluteus posterior thigh lateral thigh anterior thigh posterior calf patient reports is a 7 on scale 10 is worst average and least patient reports that sharp and burning stabbing can be constant with standing better with sitting but is waking recently about once a night. Patient has his son with him who serves as spooler. Patient reports there is some is worse with walking standing first few weeks ago doing much better but the pain returned over the next month or so and has been like this for about a month as well. Patient reports no bowel or bladder incontinence no other motor or sensory deficits but he is becoming much more weak and is difficult for him to get up out of his chair he is using a wheelchair on presentation today. Patient reports that his legs feel weak and states he is having more pain with walking over the past month he has not been walking very much has been sitting and been very sedentary most times. Physical Exam: VS: Blood pressure is 183/46 pulse 71 respirations 18 temperature is 98.2 F height is 5 feet 9 inches weight is deferred as patient is in a wheelchair. PE: PHYSICAL EXAMINATION: GENERAL: The patient is awake, alert, oriented, appropriate, very pleasant in demeanor. HEENT: Shows normocephalic, atraumatic. Extraocular movements are intact and symmetrical. NECK: Shows anterior throat supple without palpable lymphadenopathy noted. Swallow reflex symmetrical. CHEST: Shows normal on inspection. Breath sounds are clear bilaterally, distant but no rales rhonchi wheezes auscultated. HEART: Shows S1, S2 clear. No murmurs auscultated. ABDOMEN: Soft, nontender, nondistended, obese. No palpable organomegaly is noted. No rebound or guarding demonstrated. BACK: Shows spine grossly in the midline. Normal-appearing cervical lordotic curvature. There is slightly increased thoracic kyphosis, some minor flattening of the lumbar lordotic curvature. Lumbar paraspinous muscles show symmetrical on inspection, on palpation shows some moderate tenderness diffusely throughout the upper, middle and lower distribution of the paraspinous muscles without specific trigger points, without radiation of pain. The patient has good rotational motion of the lumbar spine, both laterally as well as extension and flexion without significant difficulty. No tenderness over the spinous processes, sacrum or sacroiliac regions. EXTREMITIES: Lower extremities show deep tendon reflexes 1+ in the patellar and tendo calcaneus tendons. Motor exam is 4 on a scale of 5 with right dorsiflexion, extension, quadriceps and hamstring flexion and 4/5 on the left. Peripheral pulses are 1+ posterior tibial. No peripheral edema is noted bilaterally. Lower extremities are warm and dry to touch, equal in color and appearance. SKIN: Shows warm and dry, good turgor. No edema. No sores, rashes or bruising throughout. Procedure: Procedure: Options were discussed with the patient patient's son who accompanied him his visit today. We will preauthorize patient for a second lumbar epidural steroid injection as he did very well initially after the first injection. Pain now returning in the low back and right lower extremity as it was previously foll owing L5-S1 dermatomal distribution and radicular fashion. He was encouraged to increase activity as tolerated to stretching strength exercises of the lower extremities, we discussed possible home physical therapy, via patient's son if the patient is unable to increase his activity on his own. Also will try Medrol Dosepak patient given instructions well side effects aware with the medication and will follow up once preauthorization is obtained for second lumbar epidural steroid injection translaminar approach at the L5-S1 level with fluoroscopic guidance. Medication Injected: Med Injected: None Condition at Discharge: Condition at Discharge: Condition at discharge is stable. SHIKHA GIRALDO MD Jan 14, 2021 09:53
== END | disposition home or self-care (01) ==
LOC: PNCL 08:51
PROVIDERS: ATTEND Anesthesiology
DX: M51.16 Intervertebral disc disorders with radiculopathy, lumbar region (principal); M48.061 Spinal stenosis, lumbar region without neurogenic claudication; I25.10 Atherosclerotic heart disease of native coronary artery without angina pectoris; E78.00 Pure hypercholesterolemia, unspecified; K21.9 Gastro-esophageal reflux disease without esophagitis; I12.9 Hypertensive chronic kidney disease with stage 1 through stage 4 chronic kidney disease, or unspecified chronic kidney disease; E11.22 Type 2 diabetes mellitus with diabetic chronic kidney disease; N18.30 Chronic kidney disease, stage 3 unspecified; Z79.899 Other long term (current) drug therapy; Z79.4 Long term (current) use of insulin; Z79.82 Long term (current) use of aspirin; Z95.5 Presence of coronary angioplasty implant and graft; Z98.890 Other specified postprocedural states; Z90.49 Acquired absence of other specified parts of digestive tract
CPT/HCPCS: 99212; G0463

== ENCOUNTER → 2021-02-05 | Outpatient (CLI) | payer OTHER ==
[2017-12-04 11:00] VITALS: BP 149/115
[~2021-02-05] MED LIST changes: +IOHEXOL 180 MG/ML 10 ML VIAL. ONE; +methylPREDNISolone ACETATE 80 MG/ML VIAL. ONE
--- NOTE | 2021-02-05 12:03 | PDOC ---
Progress Note - Pain Clinic Date of Service: DOS: DATE: 02/05/21 TIME: 12:00 Diagnosis: Dx: Lumbar radiculopathy with lumbar degenerative disease and lumbar spinal stenosis History or Present Illness: HPI: 85-year-old male returns for follow-up status post lumbar epidural steroid injection with good results about 75% improvement for about 2 months pain returned however in the low back and in the bilateral lower extremities more than the right over the left new finding of both legs involved not just the right leg patient reports is getting very difficult to bear weight patient is accompanied by his son who serves as carbon paper machine operator for the patient. Patient reports that through his son that the weightbearing is going very difficult and is actually asking for help with finding a wheelchair they can use at home patient reports the pain is significant even with standing for a few seconds sitting is much better as laying down is better generally does not awaken from sleep patient reports the pain when he is up is a 9 on scale 10 is worst average and least over the past week is a 9 today patient worked as tight and stabbing in the low back and the bilateral lower extremities now not only the right lower extremity as previously. Patient reports no new bowel or bladder incontinence. Physical Exam: VS: Blood pressure is 107/55 pulse 70 respirations 20 temperature 98.2 F weight is 160 pounds PE: PHYSICAL EXAMINATION: GENERAL: The patient is awake, alert, oriented, appropriate, very pleasant in demeanor, patient accompanied by his son who serves as supervisor plating and point assembly. HEENT: Shows normocephalic, atraumatic. Extraocular movements are intact and symmetrical. Oral cavity: Mucous membranes moist and pink. NECK: Shows anterior throat supple without palpable lymphadenopathy noted. Swallow reflex symmetrical. CHEST: Shows normal on inspection. Breath sounds are clear bilaterally, no rales rhonchi or wheezes auscultated. HEART: Shows S1, S2 clear. No murmurs auscultated. ABDOMEN: Soft, nontender, nondistended, obese. No palpable organomegaly is noted. BACK: Shows spine grossly in the midline. Normal-appearing cervical lordotic curvature. There is increased thoracic kyphosis, some flattening of the lumbar lordotic curvature. Lumbar paraspinous muscles show symmetrical on inspection, on palpation shows some moderate tenderness diffusely throughout the upper, middle and lower distribution of the paraspinous muscles, but without specific trigger points, without radiation of pain. The patient has good rotational motion of the lumbar spine, both laterally as well as extension and flexion wit hout significant difficulty. No tenderness over the spinous processes, sacrum or sacroiliac regions. EXTREMITIES: Lower extremities show deep tendon reflexes 1+ in the patellar and tendo calcaneus tendons. Motor exam is 4 on a scale of 5 with right dorsi flexion, extension, quadriceps and hamstring flexion and 4/5 on the left. Peripheral pulses are 1+ posterior tibial. No peripheral edema is noted bilaterally. Lower extremities are warm and dry to touch, equal in color and appearance. SKIN: Shows warm and dry, good turgor. No edema. No sores, rashes or bruising throughout. Procedure: Procedure: Options were discussed with the patient patient's son who accompanied him his visit today. Patient's old chart was reviewed, his current medication regimen updated current review of systems updated today as well. We will proceed with lumbar epidural steroid injection today with fluoroscopic guidance. Risks were discussed including but not limited to: Bleeding, infection, possibility of epidural hematoma and subsequent neurological compromise, dural puncture, headaches, spinal cord and/or nerve damage, side effects of steroid medication, and poor results regarding pain control. Patient understands and wished to proceed. Patient will return to clinic in approximate 2 weeks for follow-up, was counseled as to return appointment activity level and side effects to be aware of. Medication Injected: Med Injected: Procedure is lumbar epidural steroid injection under local anesthetic using sterile prep and drape at the L5-S1 level using C-arm fluoroscopic guidance in both AP and lateral views medications injected is 120 mg Depo-Medrol +10mL preservative-free normal saline and 2 mL contrast- condition at discharge is stable patient tolerated procedure well had no complications. Condition at Discharge: Condition at Discharge: Condition at discharge is stable, patient already procedure well and had no complications. We will order wheelchair for home use as well. SHIKHA GIRALDO MD Feb 05, 2021 12:03
--- NOTE | 2021-02-05 12:04 | PDOC4 ---
Procedure Note: ICD 10 Code: ICD 10 Code: M54.16 M4 8.07 M51.36 Procedure Note: Patient was consented for lumbar epidural steroid injection with fluoroscopic guidance. Risks were discussed including but not limited to: Bleeding, infection, possibility of epidural hematoma and subsequent neurological compromise, dural puncture, headaches, spinal cord and/or nerve damage, side effects of steroid medication, and poor results regarding pain control. Patient understands and wished to proceed. Procedure is lumbar epidural steroid injection under local anesthetic using anel rile prep and drape at the L5-S1 level using C-arm fluoroscopic guidance in both AP and lateral views medications injected is 120 mg Depo-Medrol +10mL preservative-free normal saline and 2 mL contrast- condition at discharge is stable patient tolerated procedure well had no complications. SHIKHA GIRALDO MD Feb 05, 2021 12:04
== END | disposition home or self-care (01) ==
LOC: PNCL 10:27
PROVIDERS: ATTEND Anesthesiology
DX: M51.16 Intervertebral disc disorders with radiculopathy, lumbar region (principal); M48.061 Spinal stenosis, lumbar region without neurogenic claudication; I10 Essential (primary) hypertension; E78.00 Pure hypercholesterolemia, unspecified; E11.9 Type 2 diabetes mellitus without complications; K21.9 Gastro-esophageal reflux disease without esophagitis; I25.10 Atherosclerotic heart disease of native coronary artery without angina pectoris; Z90.49 Acquired absence of other specified parts of digestive tract; Z98.890 Other specified postprocedural states; Z79.899 Other long term (current) drug therapy; Z79.82 Long term (current) use of aspirin
CPT/HCPCS: 62323; J1040; Q9965